=== PATIENT | male | born 1965 | race Two or more races ===

== ENCOUNTER 2024-09-30 14:22 | Emergency (ER) | payer SELFPAY ==
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
[2024-09-30 16:24] VITALS: BP 133/90; PULSE 94; RESP 18; TEMP 98.4; O2SAT 97
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
[2024-09-30] MEDS ORDERED: PRED20TA2 PO (16:40)
[2024-09-30] MEDS ORDERED: TRAM-626 PO (16:40)
== END 2024-09-30 16:49 | disposition home or self-care (01) ==
LOC: ER 14:28
DX: M50.30 Other cervical disc degeneration, unspecified cervical region (principal); Z79.52 Long term (current) use of systemic steroids
CPT/HCPCS: 72040